=== PATIENT | male | born 1995 | race Native Hawaiian/Other Pacific Islander ===

== ENCOUNTER 2018-02-11 22:57 | Emergency (ER) | payer OTHER ==
[~2018-02-11] VITALS: Ht 167.6 cm; Wt 66.8 kg
[2018-02-11 23:06] VITALS: BP 134/61; PULSE 97; RESP 18; TEMP 101.9; O2SAT 98
[2018-02-12] MEDS ORDERED: SODIUM CHLOR 0.9% 1000 ML INJ 100 ML IV ONE (00:09)
[2018-02-12] MEDS ORDERED: SODIUM CHLOR 0.9% 1000 ML INJ 1,000 ML IV ONE ×2 (00:09)
[2018-02-12] MEDS ORDERED: KETOROLAC TROMETHAMINE 30 MG/ML (IVP) VIAL IV PUSH ONE (00:15)
[2018-02-12] MEDS ORDERED: ACETAMINOPHEN 325 MG TAB PO ONE (00:15)
--- NOTE | 2018-02-12 00:16 | PD ---
HPI Chief Complaint: Cold / Flu Symptoms Time Seen by Provider: 23:55 Travel History International Travel<30 days: No Contact w/Intl Traveler<30days: No Traveled to known affect area: No History of Present Illness HPI The patient's 21 years old. He complains of chest pain and shortness of breath. He reports his sinuses are on fire. He complains of weakness dizziness vomiting and diarrhea. He describes generalized weakness which is severe. Subjective fever is reported. He reports difficulty ambulating. He reports no change in a chronic cervical thoracic or lumbar spinal pain. Symptoms duration is about 2 days. [facility] Social History Tobacco Use: Yes Allergies-Medications (Allergen,Severity, Reaction): Coded Allergies: No Known Allergies (Verified Allergy, Unknown, 02/11/18) Reported Meds & Prescriptions Reported Meds & Active Scripts Active Tessalon Perles (Benzonatate) 100 Mg Cap 100 Mg PO TID PRN Tamiflu (Oseltamivir Phosphate) 75 Mg Cap 75 Mg PO BID 5 Days Guaifenesin AC Liq (Guaifenesin-Codeine Liq) 100-10 Mg/5 Ml Syrp 10 Ml PO Q6H PRN 7 Days Review of Systems Except as stated in HPI: all other systems reviewed are Neg General / Constitutional: Positive: Fever Physical Exam Narrative GENERAL: 22-year-old male well-nourished well-developed Vital Signs Date Time Temp Pulse Resp B/P (MAP) Pulse Ox O2 Delivery O2 Flow Rate FiO2 02/11/18 23:06 101.9 97 18 134/61 (85) 98 SKIN: Warm and dry. HEAD: Atraumatic. Normocephalic. EYES: Pupils equal and round. No scleral icterus. No injection or drainage. ENT: No nasal bleeding or discharge. Mucous membranes pink and moist. NECK: Trachea midline. No JVD. CARDIOVASCULAR: Tachycardia. Regular rhythm. RESPIRATORY: No accessory muscle use. Clear to auscultation. Breath sounds equal bilaterally. GASTROINTESTINAL: Abdomen soft, non-tender, nondistended. Hepatic and splenic margins not palpable. MUSCULOSKELETAL: Extremities without clubbing, cyanosis, or edema. No obvious deformities. NEUROLOGICAL: Awake and alert. No obvious cranial nerve deficits. Motor grossly within normal limits. Five out of 5 muscle strength in the arms and legs. Normal speech. PSYCHIATRIC: Appropriate mood and affect; insight and judgment normal. Data Data Last Documented VS Orders Orders Sepsis Workup Initiated (02/12/18 ) Electrocardiogram (02/12/18 00:09) Complete Blood Count With Diff (02/12/18 00:09) Comprehensive Metabolic Panel (02/12/18 00:09) Influenzae A/B Antigen (02/12/18 00:09) Chest, Single Ap (02/12/18 00:09) Ecg Monitoring (02/12/18 00:09) Iv Access Insert/Monitor (02/12/18 00:09) Oximetry (02/12/18 00:09) Oxygen Administration (02/12/18 00:09) Acetaminophen (Tylenol) (02/12/18 00:15) Sodium Chlor 0.9% 1000 Ml Inj (Ns 1000 M (02/12/18 00:09) Sodium Chlor 0.9% 1000 Ml Inj (Ns 1000 M (02/12/18 00:09) Sodium Chlor 0.9% 1000 Ml Inj (Ns 1000 M (02/12/18 00:09) Ketorolac Inj (Toradol Inj) (02/12/18 00:15) Albuterol Neb (Albuterol Neb) (02/12/18 00:30) Benzonatate (Tessalon) (02/12/18 01:45) Guaifen-Cod 200-20 Mg/10ml Liq (Robituss (02/12/18 01:45) Ed Discharge Order (02/12/18 02:16) Oseltamivir (Tamiflu) (02/12/18 02:30) Labs Laboratory Tests Test 02/12/18 00:46 White Blood Count 3.4 TH/MM3 Red Blood Count 4.72 MIL/MM3 Hemoglobin 13.9 GM/DL Hematocrit 40.9 % Mean Corpuscular Volume 86.7 FL Mean Corpuscular Hemoglobin 29.6 PG Mean Corpuscular Hemoglobin Concent 34.1 % Red Cell Distribution Width 11.9 % Platelet Count 132 TH/MM3 Mean Platelet Volume 8.3 FL Neutrophils (%) (Auto) 62.5 % Lymphocytes (%) (Auto) 20.1 % Monocytes (%) (Auto) 15.6 % Eosinophils (%) (Auto) 0.0 % Basophils (%) (Auto) 1.8 % Neutrophils # (Auto) 2.1 TH/MM3 Lymphocytes # (Auto) 0.7 TH/MM3 Monocytes # (Auto) 0.5 TH/MM3 Eosinophils # (Auto) 0.0 TH/MM3 Basophils # (Auto) 0.1 TH/MM3 CBC Comment DIFF FINAL Differential Comment Blood Urea Nitrogen 11 MG/DL Creatinine 0.86 MG/DL Random Glucose 78 MG/DL Total Protein 6.8 GM/DL Albumin 3.7 GM/DL Calcium Level 8.1 MG/DL Alkaline Phosphatase 57 U/L Aspartate Amino Transf (AST/SGOT) 21 U/L Alanine Aminotransferase (ALT/SGPT) 21 U/L Total Bilirubin 0.3 MG/DL Sodium Level 133 MEQ/L Potassium Level 3.2 MEQ/L Chloride Level 100 MEQ/L Carbon Dioxide Level 23.0 MEQ/L Anion Gap 10 MEQ/L Estimat Glomerular Filtration Rate 110 ML/MIN MDM Medical Decision Making Medical Screen Exam Complete: Yes Emergency Medical Condition: Yes Medical Record Reviewed: Yes Differential Diagnosis Pneumonia, influenza, nonspecific viral syndrome Narrative Course CBC & BMP Diagram 02/12/18 00:46 Total Protein 6.8, Albumin 3.7, Calcium Level 8.1 L, Alkaline Phosphatase 57, Aspartate Amino Transf (AST/SGOT) 21, Alanine Aminotransferase (ALT/SGPT) 21, Total Bilirubin 0.3 Last Impressions Chest X-Ray 02/12/18 0009 Signed Impressions: Service Date/Time: Monday, February 12, 2018 00:20 - CONCLUSION: No acute infiltrate. Left upper lobe bulla; in a patient this age, this may be developmental or related to remote trauma. Audi Fishman MD PResentation is c/w clinical influenza Agent received IV fluids and Toradol and Tylenol. Subjective improvement reported. He is young and otherwise healthy and suitable for discharge with scripts as below. Diagnosis Primary Impression: Influenza Referrals: Primary Care Physician call for appointment Med/Other Pt SpecificInfo: Prescription(s) given Scripts Benzonatate (Tessalon Perles) 100 Mg Cap 100 MG PO TID Y for COUGH, #20 CAP 0 Refills Prov: Edil Brunner MD 02/12/18 Oseltamivir (Tamiflu) 75 Mg Cap 75 MG PO BID for Mgmt Viral Infection for 5 Days, #10 CAP 0 Refills Prov: Edil Brunner MD 02/12/18 Guaifenesin-Codeine Liq (Guaifenesin AC Liq) 100-10 Mg/5 Ml Syrp 10 ML PO Q6H Y for COUGH for 7 Days, #1 BOTTLE 0 Refills Prov: Edil Brunner MD 02/12/18 Disposition: 01 DISCHARGE HOME Condition: Stable Edil Brunner MD Feb 12, 2018 00:16
[2018-02-12] MEDS: RESP: ALBUTEROL 2.5 MG/3 ML NEB (SCH) INH ×2 (00:35→00:36)
--- NOTE | 2018-02-12 00:42 | RADRPT ---
EXAM DATE/TIME: 02/12/2018 00:20 [place] COMPARISON: No previous studies available for comparison. INDICATIONS : Fever, cough and "flu" symptoms. MEDICAL HISTORY : None. SURGICAL HISTORY : None. ENCOUNTER: Initial ACUITY: 4 - 6 days PAIN SCORE: 10/10 LOCATION: all over FINDINGS: No infiltrate, effusion or pneumothorax demonstrated. There is an apparent large bulla in the left up per lobe. Normal heart size. CONCLUSION: No acute infiltrate. Left upper lobe bulla; in a patient this age, this may be developmental or relat ed to remote trauma. Audi Fishman MD on February 12, 2018 at 0:40 Board Certified Radiologist. This report was verified electronically.
[2018-02-12 00:53] VITALS: O2SAT 98
[2018-02-12 00:55] VITALS: BP 112/68; PULSE 107; RESP 20; O2SAT 98
[2018-02-12 01:16] LABS: AUTOMATED NEUTROPHIL # 2.1 TH/MM3 (1.8-7.7); BASOPHIL # 0.1 TH/MM3 (0-0.2); BASOPHIL % 1.8 % (0.0-2.0); HEMATOCRIT 40.9 % (39.0-51.0); HEMOGLOBIN 13.9 GM/DL (13.0-17.0); LYMPH % 20.1 % (9.0-44.0); LYMPHOCYTE # 0.7 TH/MM3 (1.0-4.8); MEAN CELL VOLUME 86.7 FL (80.0-100.0); MEAN CORPUSCULAR HEMOGLOBIN 29.6 PG (27.0-34.0); MEAN CORPUSCULAR HGB CONC 34.1 % (32.0-36.0); MEAN PLATELET VOLUME 8.3 FL (7.0-11.0); MONO % 15.6 % (0.0-8.0); MONOCYTE # 0.5 TH/MM3 (0-0.9); NEUT % 62.5 % (16.0-70.0); PLATELET COUNT 132 TH/MM3 (150-450); RED BLOOD COUNT 4.72 MIL/MM3 (4.50-5.90); RED CELL DISTRIBUTION WIDTH 11.9 % (11.6-17.2); WHITE BLOOD COUNT 3.4 TH/MM3 (4.0-11.0)
[2018-02-12 01:21] LABS: CHLORIDE 100 MEQ/L (98-107); SODIUM (NA) 133 MEQ/L (136-145)
[2018-02-12 01:24] LABS: CALCIUM 8.1 MG/DL (8.5-10.1)
[2018-02-12 01:25] LABS: ALBUMIN 3.7 GM/DL (3.4-5.0); BLOOD UREA NITROGEN 11 MG/DL (7-18); GLUCOSE,RANDOM 78 MG/DL (74-106)
[2018-02-12 01:28] LABS: ALT (GPT) 21 U/L (12-78); AST (GOT) 21 U/L (15-37); CREATININE 0.86 MG/DL (0.60-1.30); GLOMERULAR FILTRATION RATE 110 ML/MIN (>89)
[2018-02-12 01:30] LABS: TOTAL BILIRUBIN ADULT 0.3 MG/DL (0.2-1.0); TOTAL PROTEIN 6.8 GM/DL (6.4-8.2)
[2018-02-12 01:31] LABS: ALKALINE PHOSPHATASE 57 U/L (45-117)
[2018-02-12] MEDS ORDERED: GUAISYP4 PO (01:36)
[2018-02-12] MEDS ORDERED: OSEL75 PO (01:36)
[2018-02-12] MEDS ORDERED: BENZ100 PO (01:39)
[2018-02-12] MEDS ORDERED: BENZONATATE 100 MG CAP PO ONE (01:45)
[2018-02-12] MEDS ORDERED: guaiFENesin/CODEINE SYRUP 200 MG/20 MG/10 ML CUP PO ONE (01:45)
[2018-02-12 01:49] VITALS: BP 136/64; PULSE 112; RESP 18; TEMP 98.5; O2SAT 98
[2018-02-12] MEDS ORDERED: OSELTAMIVIR PHOSPHATE 75 MG CAP PO ONE (02:30)
[2018-02-12 02:39] VITALS: BP 132/68
--- NOTE | 2018-02-12 09:52 | EKG ---
Date Performed: 02/12/2018 Time Performed: 00:58:47 PTAGE: 22 years EKG: SINUS TACHYCARDIA POSSIBLE LEFT ATRIAL ENLARGEMENT Voltage criteria for left ventricular hy pertrophy ABNORMAL RHYTHM ECG NO PREVIOUS TRACING DOCTOR: Carlos Cook Interpretating Date/Time 02/12/2018 09:50:59
== END 2018-02-12 02:41 | disposition home or self-care (01) ==
LOC: PHED 22:57
DX: J11.1 Influenza due to unidentified influenza virus with other respiratory manifestations (principal); R00.0 Tachycardia, unspecified; R94.31 Abnormal electrocardiogram [ECG] [EKG]; R06.02 Shortness of breath; R53.1 Weakness; R42 Dizziness and giddiness; R11.10 Vomiting, unspecified; R19.7 Diarrhea, unspecified; Z72.0 Tobacco use
CPT/HCPCS: 71045; 80053; 85025; 87804; 93005; 94640; 94664; 96361; 96374; 99285; J1885; J7030; J7613